=== PATIENT | male | born 1960 | race Caucasian/White ===

== ENCOUNTER 2019-03-22 15:49 | Inpatient (IN) | payer SELFPAY ==
[2019-03-22 16:52] VITALS: BMI 28.7
[2019-03-22] MEDS: niCARdipine 25 MG in Sodium Chloride 0.9% 250 ML 240 ML IVPB SCH (17:24)
[2019-03-22] MEDS ORDERED: Ondansetron ODT 4 MG TAB PO PRN (18:03)
[2019-03-22] MEDS ORDERED: Labetalol HCl 100 MG/20 ML VIAL SLOW IVP PRN (18:03)
[2019-03-22] MEDS: Nicotine 21 MG PATCH TD SCH (18:34)
[2019-03-22] MEDS: Famotidine 20 MG TAB PO SCH (19:45)
[2019-03-22] MEDS: Atorvastatin Calcium 40 MG TAB PO SCH (19:45)
[2019-03-22] MEDS: Acetaminophen 500 MG TAB PO PRN (20:15)
--- NOTE | 2019-03-22 20:45 | HP ---
PRIMARY CARE PROVIDER: Dr. Carrol George. CHIEF COMPLAINT: Left-sided weakness. HISTORY OF PRESENT ILLNESS: This is a 58-year-old male, who presented initially to [facility] complaining of greater than 24-hour history of left-sided weakness involving the left arm and left lower leg. The patient states that he woke up on 03/21/2019, in the transcription hours and felt extremely weak on his left upper and lower extremities. The patient denied any fall or injury and states he was completely normal the night before when he went to bed. The patient states he slept most of the day on 03/21/2019, and awoke on 03/22/2019, with inability to stand or walk. The patient called his mother who recommended he seek medical attention and felt like he had sustained a stroke. The patient admits to history of hypertension, currently treated with oral medication. The patient also admits to hypothyroidism treated medically. The patient admits to greater than 40-50 year history of smokeless tobacco use, occasional alcohol use, and no illicit drug use. The patient denied any travel history, family members with similar symptoms, recent fall or head injury. The patient admits to some difficulty forming words and felt like his arm was heavy and lifeless. In the emergency room, the patient underwent general evaluation including CT imaging of the brain showing no acute process. CT angiogram of the [place] also was performed showing no focal stenosis. The patient was placed on a Cardene infusion due to hypertension at the time of evaluation in the emergency room. The patient was transferred to [facility] Unit and Hospitalist Service for further evaluation. PAST MEDICAL HISTORY: 1. Hypertension, currently medically treated. 2. Hypothyroidism, currently treated. 3. Smokeless tobacco use. PAST SURGICAL HISTORY: Status post hernia repair. CURRENT MEDICATIONS: 1. Amlodipine 5 mg p.o. daily. 2. Levothyroxine 150 mcg p.o. daily. ALLERGIES: NO KNOWN DRUG ALLERGIES. FAMILY HISTORY: Positive for hypertension. SOCIAL HISTORY: Resides in [facility]. Works as a pest control agent. Daily smokeless tobacco use greater than 40 to 50 years. Social alcohol use. No illicit drug use. with 2 children. REVIEW OF SYSTEMS: CONSTITUTIONAL: Negative for weight loss or gain, ability to conduct usual activities. SKIN: Negative for rash, itching. EYES: Negative for double vision, pain. ENT/MOUTH: Negative for nose bleeding, neck stiffness, pain, tenderness. CARDIOVASCULAR: Negative for palpitations, dyspnea on exertion, orthopnea. RESPIRATORY: Negative for shortness of breath, wheezing, cough, hemoptysis, fever or night sweats. GASTROINTESTINAL: Negative for poor appetite, abdominal pain, heartburn, nausea, vomiting, constipation, or diarrhea. GENITOURINARY: Negative for urgency, frequency, dysuria, nocturia. MUSCULOSKELETAL: Negative for pain, swelling. NEUROLOGIC/PSYCHIATRIC: Negative for anxiety, depression. ALLERGY/IMMUNOLOGIC: Negative for skin rash, bleeding tendency. Otherwise, negative except as stated per HPI. PHYSICAL EXAMINATION: VITAL SIGNS: On admission, initially, blood pressure 209/113, currently 156/93 on a Cardene infusion. Pulse 57, respiratory rate 18, temperature 98.7 degrees Fahrenheit, O2 saturation 99% on room air. GENERAL APPEARANCE: This is a 58-year-old male, alert and oriented x3, pleasant, responsive, in no acute distress. HEENT: Pupils are equal, round, reactive to light and accommodation. Extraocular muscles are intact. No scleral icterus. No conjunctival injection. Nares patent. OP is clear. Oral mucosa dry. Left facial asymmetry noted. NECK: Supple. No cervical adenopathy. No thyromegaly. No carotid bruits. No JVD appreciated. Cervical spine with full active and passive range of motion. No meningeal signs noted. CHEST: Lungs are clear to auscultation bilaterally. CARDIOVASCULAR: S1 and S2 without noted murmur, rub, or gallop. ABDOMEN: Rounded, soft, nontender, and nondistended. Bowel sounds are positive in all 4 quadrants. There is no hepatosplenomegaly. No abdominal bruits. No rebound or guarding appreciated. EXTREMITIES: Warm and dry with fair turgor. No clubbing, cyanosis, or asymmetric edema appreciated. Pulses palpable distally at the dorsalis pedis, posterior tibial, and popliteal arteries bilaterally. Capillary refill less than 2 seconds. NEUROLOGICAL: Positive dysarthria. Left facial asymmetry. Left hemiparesis with 2/5 muscle strength in the left upper and left lower extremity. Right-hand dominant. Not observed ambulatory during this exam. Initial NIH score of 11, currently 10. PERTINENT LABORATORY AND X-RAY FINDINGS: Basic metabolic profile within normal limits. LFTs within normal limits. Total CK of 276. Troponin I negative x1. CBC within normal limits. PT 12.0, INR 0.9, PTT 24.7. Urinalysis negative. Urine drug screen dated 03/22/2019, negative. Plasma alcohol level less than 10. EKG dated 03/22/2019, by my interpretation shows sinus bradycardia with heart rates in the 50s. Normal R-wave progression noted in the precordial leads. Left axis deviation noted. T-wave inversion in leads V5 and V6. ASSESSMENT AND PLAN: 1. Acute/subacute ischemic cerebrovascular accident. The patient will be admitted to the Critical Care Unit. We will continue Cardene infusion for blood pressure management. Obtain MRI imaging of the brain to further delineate area of infarct. Continue general stroke protocol including physical, occupational, and speech therapy evaluation. Continue aspirin 81 mg daily. Check fasting lipid profile in the a.m. 2D transthoracic echocardiogram in the a.m. 2. Hypertensive urgency. See #1 above. Continue Cardene infusion to maintain systolic in the 150 to 180 range in conjunction with stroke protocol permissive hypertension. 3. Left hemiparesis secondary to #1. PT and OT evaluation in the a.m. The patient may benefit from inpatient rehabilitation. General fall risk precautions. 4. Hypothyroidism. Continue levothyroxine 150 mcg p.o. daily. Check TSH and free T4 level in the a.m. 5. Smokeless tobacco abuse. Nicotine patch 21 mg daily. Tobacco cessation resources. 6. Prophylaxis. SCDs while in bed. Pepcid 20 mg p.o. b.i.d. 7. Code status is full. Surrogate medical decision maker is the patient's . Job ID: [id number]
[2019-03-22] MEDS: Lorazepam 2 MG/ML VIAL SLOW IVP PRN (21:30)
[2019-03-23 04:24] LABS: Band 2 % (5-11); Hemoglobin 14.7 g/dL (14.0-18.0); Lymphocytes 13 % (21-51); MDiff Complete? YES; Mean Corpuscular HGB CONC 34.6 g/dL (32.0-36.0); Mean Corpuscular Hemoglobin 32.8 pg (27.0-31.0); Mean Corpuscular Volume 94.7 fL (78.0-98.0); Mean Platelet Volume 6.2 fL (7.4-10.4); Monocytes 4 % (0-10); Neutrophil 81 % (42-75); Platelet Count 359 thou/uL (130-400); Red Blood Cell (RBC) Count 4.48 mill/uL (4.70-6.10); White Blood Cell (WBC) Count 7.7 thou/uL (4.8-10.8)
[2019-03-23 04:25] LABS: Anion Gap 10 mmol/L (10-20); BUN (Urea Nitrogen) 18 mg/dL (8.4-25.7); Calc. Creatinine Clearance 107 mL/min (70-130); Calcium 9.6 mg/dL (7.8-10.44); Carbon Dioxide 24 mmol/L (22-29); Cardiac Risk 4.6 (Less than 4.5); Chloride 109 mmol/L (98-107); Cholesterol 213 mg/dl (< 200 Desired); Estimated GFR-MDRD 82; Glucose 133 mg/dL (70-105); HDL Cholesterol 46 mg/dL (>60 Neg Risk); LDL Cholesterol, Calculated 144 mg/dL; Potassium 4.3 mmol/L (3.5-5.1); Sodium 139 mmol/L (136-145); Triglycerides 114 mg/dL (Less than 150)
[2019-03-23 04:42] LABS: Free T4 (Free Thyroxine) 1.17 ng/dL (0.70-1.48); Thyroid Stimulating Hormone 0.3527 uIU/mL (0.35-4.94)
[2019-03-23] MEDS: Aspirin 81 mg Enteric Coated Tablet PO SCH (09:40)
[2019-03-23] MEDS: Famotidine 20 MG TAB PO SCH ×2 (09:41→20:54)
[2019-03-23] MEDS: Enoxaparin Sodium 40 MG/0.4 ML SYRINGE SC SCH (09:41)
--- NOTE | 2019-03-23 09:43 | MRI ---
MRI BRAIN WITHOUT CONTRAST: Date: 03/23/19 INDICATION: Left side weakness. Correlation made to CT head dated 03/22/19. FINDINGS: Ventricles have normal size and position. There are moderately severe chronic ischemic white matter c hanges seen in the periventricular white matter of both cerebral hemispheres. Diffusion images show restricted diffusion in the brainstem on the right at the level of the zohra con sistent with acute brainstem infarct. This extends inferiorly into the region of the right cerebellar peduncle. No other restricted diffusion. No mass or edema. Intracranial internal carotid arteries show flow-voids. Proximal middle cerebral arteries show flow-v oids. Basilar artery demonstrates flow-voids. The posterior cerebrals are not well identified. Abnormal signal in the left maxillary sinus suggests diffuse mucosal disease. IMPRESSION: 1. Acute brainstem infarct at the level of the zohra to the right with involvement into right cerebel lar peduncle. 2. Moderate to severe chronic ischemic white matter change. POS: MARLENE
[2019-03-23] MEDS: niCARdipine 25 MG in Sodium Chloride 0.9% 250 ML 240 ML IVPB SCH (10:26)
[2019-03-23] MEDS ORDERED: Amlodipine 5 MG TAB PO SCH (11:00)
--- NOTE | 2019-03-23 11:35 | CON ---
DATE OF TELEMEDICINE CONSULTATION: 03-25-19 CHIEF COMPLAINT: Acute stroke. HISTORY OF PRESENT ILLNESS: The patient reports that he had sudden onset left- sided weakness when he was asleep. He woke up with this and he felt very weak on the left upper and lower extremities. There was no history of headache or any other symptoms. He also had some numbness on the left side. He was brought to the emergency room and he has never had a stroke before. PREVIOUS MEDICAL HISTORY: Positive for hypertension, hypothyroidism, and smokeless tobacco use. He dips half a can per day. PREVIOUS SURGICAL HISTORY: Status post hernia repair. MEDICATIONS: At home, he is on; 1. Amlodipine. 2. Levothyroxine. ALLERGIES: NO KNOWN DRUG ALLERGIES. SOCIAL HISTORY: He lives with his family. Does not smoke, but dips half a can per day and occasional alcohol. He still works in [employer]. FAMILY HISTORY: Mother has had two CVAs, she is 80 years old. His father at 70, he had cardiac problems, also had a pacemaker. He has 2 brothers and 2 sisters and 4 children, all of them are healthy. REVIEW OF SYSTEMS: PULMONARY: Negative for cough or shortness of breath. GI: Negative for nausea, vomiting, or diarrhea. NEUROLOGIC: Positive for dysarthria plus weakness on the left side along with numbness. DERMATOLOGIC: Negative for any rash. HEMATOLOGIC: Negative for any bleeding, diathesis, or anemia. OPHTHALMOLOGIC: Negative for any eye problems. LABORATORY DATA: His lab workup; white count 7.7, hemoglobin 14.7, hematocrit 94.7, platelet count 359. Sodium 139, potassium 4.3, chloride 109, bicarb 24, BUN 18, creatinine 0.94, glucose 133, calcium 9.6, cholesterol 213, LDL 144, HDL 46, and T4 of 1.1. TSH 0.35. IMAGING STUDIES: CT angio of the head was completed. CTA of the neck was not completed. Therefore, I requested that his brain MRI shows acute brainstem infarct at the level of zohra to the right with involvement into right cerebellar peduncle, [id number] chronic white matter ischemic changes. PHYSICAL EXAMINATION: VITAL SIGNS: Temperature was normal at 97.9, his blood pressure 159/103, heart rate 48, respiratory rate 13, O2 saturations 93%. GENERAL APPEARANCE: Well-built, well-nourished man, who is comfortable in bed. CHEST: Clear vesicular breathing. CARDIOVASCULAR: S1 and S2 heard. No murmurs. ABDOMEN: Soft. NEUROLOGIC: Higher intellectual functions, normal. Orientation to time, place , and person. Cranial nerves 2 through 12. Pupils 2 mm, reactive to light. Decreased sensation of the left face. Normal extraocular movements. Facial asymmetry with weakness of the face on the left side and his tongue is in midline. No atrophy noted. Normal elevation of palate. Normal hearing to finger rub. Motor; bulk normal, tone normal. Strength 5/5 on the right side; 0/5 on the left side in the upper extremity; 2/5 proximally in the left lower extremity, 0/5 distally. His hand retail property manager was intact on the left side, but weak. Muscle groups tested are deltoid, biceps, triceps, wrist extension and flexion, finger extension and flexion, iliopsoas, hamstrings, quadriceps, ankle dorsiflexion, plantar flexion bilaterally. Deep tendon reflexes are 3+ throughout. Sensory examination normal to touch bilaterally, but diminished on the face and arm and leg. Cerebellar; normal on the right side, difficult to test on the left side. Planters, withdrawal response. IMPRESSION: The patient is a 58-year-old man with acute left face, arm, and leg weakness, with which he woke up on the , and he was evaluated in the ER and admitted to the hospital for stroke. His current examination shows diffuse left-sided weakness, but preserved right-sided strength. Diagnosis is most consistent with acute motor plus sensory stroke likely localizing in the brainstem area. At this time, we need to evaluate his vascular status as well. RECOMMENDATIONS: Aspirin for stroke prophylaxis. I requested CT angio of the neck to look for any vascular stenosis in the posterior circulation. The patient will also need to be on statin. I will follow up the patient as stroke workup is completed with echocardiogram as well. Job ID: [id number] [facility]
--- NOTE | 2019-03-23 12:36 | CT ---
CTA NECK WITH AND WITHOUT CONTRAST WITH 3D VOLUME RENDERING: CLINICAL HISTORY: Stroke. FINDINGS: The imaged aortic arch reveals mild calcification. There is a dominant left vertebral artery. There i s no high-grade stenosis or occlusion of the vertebral basilar system. Right subclavian artery is patent, as imaged. Left subclavian artery is not reliably evaluated due to adjacent high density from venous contaminant, limiting visualization of this region of the left base of neck. The bilateral common and internal carotid arteries reveal scattered mild calcification although no high-grade steno sis or occlusion. Portions of the proximal left carotid artery are limited by adjacent venous contaminant, precluding assessment of the proximal aspect of the left common carotid artery. Incident al note of variant circulation of right SHOWCASE MAKER. Incidental note of ground glass and interstitial opacities of the visualized bilateral upper lung zon es, incompletely assessed. Correlate clinically incidental note of diminutive volume of thyroid gland. Scattered nonspecific regional lymph nodes are seen. Multilevel degenerative change of the quinn ged spine, notably involving the cervical segment. IMPRESSION: Scattered atherosclerotic vascular disease, without high-grade stenosis or occlusion of the imaged ma brendan arterial system of the neck. Transcribed Date/Time: 03/23/2019 12:47 PM
[2019-03-23] MEDS: hydrALAZINE 20 MG/ML VIAL SLOW IVP PRN ×2 (14:38→18:11)
--- NOTE | 2019-03-23 16:51 | PDOC.HOSPP ---
- Subjective Encounter Date: 03/23/19 Encounter Time: 16:40 Subjective: f/u for acute R zohra ischemic CVA on current ASA/Lipitor. - Objective Vital Signs & Weight: Vital Signs (12 hours) Temp Pulse Pulse Pulse BP BP BP 03/23/19 14:38 59 L 169/99 H 03/23/19 12:00 98.1 F 03/23/19 11:06 59 L 169/99 H 03/23/19 10:32 60 56 L 168/94 H 158/83 H 03/23/19 09:30 51 L 56 L 162/111 H 163/90 H 03/23/19 08:00 97.9 F 03/23/19 05:00 98.5 F Pulse Ox Pulse Ox Pulse Ox 03/23/19 14:38 03/23/19 12:00 03/23/19 11:06 03/23/19 10:32 95 95 03/23/19 09:30 99 96 03/23/19 08:00 98 03/23/19 05:00 Weight Weight 200 lb 6.403 oz Most Recent Monitor Data Heart Rate from ECG 65 NIBP 153/90 NIBP BP-Mean 111 Respiration from ECG 28 SpO2 95 I&O: 03/22/19 03/23/19 03/24/19 06:59 06:59 06:59 Intake Total 855 450 Output Total 820 350 Balance 35 100 Result Diagrams: 03/23/19 03:40 03/23/19 03:40 Additional Labs: Laboratory Tests 03/23/19 03:41 Free T4 1.17 TSH 3rd Generation 0.3527 Radiology Reviewed by me: Yes (MRI brain = R zohra isch infarct) EKG Reviewed by me: Yes (Tele - SR) Hospitalist ROS - Medication Medications: Active Medications Generic Name Dose Route Start Last Admin Trade Name Freq PRN Reason Stop Dose Admin Acetaminophen 1,000 mg 03/22/19 18:03 03/22/19 20:15 Tylenol PO 1,000 mg Q6H PRN Administration Mild Pain (1-3) Amlodipine Besylate 5 mg 03/24/19 09:00 03/23/19 11:06 Norvasc PO 5 mg DAILY WILL Administration Aspirin 81 mg 03/23/19 09:00 03/23/19 09:40 Ecotrin PO 81 mg DAILY WILL Administration Atorvastatin Calcium 40 mg 03/22/19 21:00 12/22/19 19:45 Lipitor PO 40 mg HS WILL Administration Enoxaparin Sodium 40 mg 03/23/19 09:00 03/23/19 09:41 Lovenox SC 40 mg 0900 WILL Administration Famotidine 20 mg 03/22/19 21:00 03/23/19 09:41 Pepcid PO 20 mg BID WILL Administration Hydralazine HCl 10 mg 03/22/19 18:03 03/23/19 14:38 Apresoline SLOW IVP 10 mg Q4H PRN Administration BP > 220/110 Nicardipine HCl 25 mg/ Sodium 250 mls @ 0 mls/hr 03/22/19 16:30 03/23/19 10: 26 Chloride IVPB 250 mls INF WILL Administration Protocol Titrate Lorazepam 1 mg 03/22/19 18:03 03/22/19 21:30 Ativan SLOW IVP 1 mg Q6H PRN Administration Anxiety/Agitation Nicotine 21 mg 03/22/19 18:00 03/22/19 18:34 Nicoderm Patch TD 21 mg Q24HR WILL Administration - Exam General Appearance: NAD, awake alert Eye: PERRL, anicteric sclera ENT: normocephalic atraumatic, no oropharyngeal lesions Neck: supple, symmetric, no JVD, no thyromegaly Heart: RRR, no murmur, no gallops, no rubs, normal peripheral pulses Respiratory: CTAB, no wheezes, no rales, no ronchi, normal chest expansion Gastrointestinal: soft, non-tender, non-distended, normal bowel sounds Extremities: no cyanosis, no clubbing, no edema Skin: normal turgor, no lesions Neurological: facial droop Neurological - other findings: L hemiparesis, dysarthria Musculoskeletal: normal tone Psychiatric: normal affect, A&O x 3 Hosp A/P (1) Acute CVA (cerebrovascular accident) Code(s): I63.9 - CEREBRAL INFARCTION, UNSPECIFIED Status: Acute Plan: R zohra ischemic CVA, continue ASA/Lipitor (2) Hypertensive urgency Code(s): I16.0 - HYPERTENSIVE URGENCY Status: Acute Plan: Improved, Cardene gtt off, increase Amlodipine 10mg daily, PRN Hydralazine/ Labetalol (3) Hyperlipidemia Code(s): E78.5 - HYPERLIPIDEMIA, UNSPECIFIED Status: Chronic Plan: Continue Lipitor 40mg HS (4) Acute left hemiparesis Code(s): G81.94 - HEMIPLEGIA, UNSPECIFIED AFFECTING LEFT NONDOMINANT SIDE Status: Acute Plan: PT/OT for mobilization, rehab options - Plan plan discussed w/ family, PT/OT, social secretary, out of bed/ambulate, DVT proph w/SCDs Stable currently Continue ASA 81mg daily Continue Lipitor PT/OT/ST D/C Cardene gtt Increase Amlodipine 10mg daily Transfer to stroke unit
[2019-03-23] MEDS: Nicotine 21 MG PATCH TD SCH (17:35)
[2019-03-23] MEDS: Lorazepam 2 MG/ML VIAL SLOW IVP PRN (20:54)
[2019-03-23] MEDS: Atorvastatin Calcium 40 MG TAB PO SCH (20:54)
[2019-03-24] MEDS ORDERED: Amlodipine 5 MG TAB PO SCH (09:00)
[2019-03-24] MEDS: Aspirin 81 mg Enteric Coated Tablet PO SCH (10:04)
[2019-03-24] MEDS: Famotidine 20 MG TAB PO SCH ×2 (10:04→20:40)
[2019-03-24] MEDS: Enoxaparin Sodium 40 MG/0.4 ML SYRINGE SC SCH (10:04)
[2019-03-24] MEDS: Amlodipine 10 MG TAB PO SCH (10:05)
--- NOTE | 2019-03-24 12:03 | PRG ---
DATE OF TELEMEDICINE SERVICE: 03/24/2019 CHIEF COMPLAINT: Left-sided weakness. INTERVAL HISTORY: The patient continues to have left-sided weakness. Further workup, his brain MRI was completed. He has acute brainstem infarct to the right zohra with involvement into right cerebral nerve peduncle. Echocardiogram was also completed and showed no thrombus, but he has mild mitral and tricuspid regurgitation. He has completed his CT angiography, which did not show any kind of stenosis in the neck area. PHYSICAL EXAMINATION: VITAL SIGNS: Today, temperature 97.5, pulse 54, O2 saturations 94%, blood pressure 178/89. GENERAL APPEARANCE: Well-built, well-nourished man. NEUROLOGICAL: Higher intellectual functions; normal orientation to time, place , and person. Dysarthria is better today. Cranial nerves, left facial weakness. Motor examination, he has 0/5 strength left upper extremity, except for flexors in the hand, which were 2+. Left lower extremity strength was 3/5. IMPRESSION AND PLAN: The patient with acute stroke in the right brainstem area and pontine area. He has left-sided weakness. At this time, he will need further rehab placement to improve his strength in the left arm and leg. He can follow up with Neurology as outpatient after his discharge from rehab. For now, please work on PM and R consult and rehab placement. Agree with aspirin plus statin for stroke prophylaxis. Job ID: [id number] [facility]
--- NOTE | 2019-03-24 16:26 | PDOC.HOSPP ---
- Subjective Encounter Date: 03/24/19 Encounter Time: 16:25 Subjective: f/u for acute CVA R zohra region with L hemiparesis, dysarthria on current ASA/ Lipitor. Persistent weakness in LUE>LLE. Nursing reports pt fell while transferring to wheelchair. No LOC/head injury and family were present. Pt states he feels ok and just slid down. - Objective Vital Signs & Weight: Vital Signs (12 hours) Temp Pulse Resp BP Pulse Ox 03/24/19 16:19 172/102 H 03/24/19 15:34 97.7 F 56 L 20 190/97 H 97 03/24/19 11:22 97.6 F 52 L 16 151/94 H 95 03/24/19 10:05 54 L 03/24/19 08:00 97.5 F L 65 12 178/89 H 94 L Weight Weight 200 lb 6.403 oz Most Recent Monitor Data Heart Rate from ECG 78 NIBP 158/95 NIBP BP-Mean 116 Respiration from ECG 28 SpO2 86 I&O: 03/23/19 03/24/19 03/25/19 06:59 06:59 06:59 Intake Total 855 790 360 Output Total 820 550 Balance 35 240 360 Result Diagrams: 03/23/19 03:40 03/23/19 03:40 Additional Labs: Laboratory Tests 03/23/19 03:41 Free T4 1.17 TSH 3rd Generation 0.3527 Radiology Reviewed by me: Yes (Echo - EF 55-60%, diast dysfxn, no thrombus) EKG Reviewed by me: Yes (Tele - SR) Hospitalist ROS - Medication Medications: Active Medications Generic Name Dose Route Start Last Admin Trade Name Freq PRN Reason Stop Dose Admin Acetaminophen 1,000 mg 03/22/19 18:03 03/22/19 20:15 Tylenol PO 1,000 mg Q6H PRN Administration Mild Pain (1-3) Amlodipine Besylate 10 mg 03/24/19 09:00 03/24/19 10:05 Norvasc PO 10 mg DAILY WILL Administration Aspirin 81 mg 03/23/19 09:00 03/24/19 10:04 Ecotrin PO 81 mg DAILY WILL Administration Atorvastatin Calcium 40 mg 03/22/19 21:00 03/23/19 20:54 Lipitor PO 40 mg HS WILL Administration Enoxaparin Sodium 40 mg 03/23/19 09:00 03/24/19 10:04 Lovenox SC 40 mg 0900 WILL Administration Famotidine 20 mg 03/22/19 21:00 03/24/19 10:04 Pepcid PO 20 mg BID WILL Administration Hydralazine HCl 10 mg 03/22/19 18:03 03/23/19 18:11 Apresoline SLOW IVP 10 mg Q4H PRN Administration BP > 220/110 Nicardipine HCl 25 mg/ Sodium 250 mls @ 0 mls/hr 03/22/19 16:30 03/23/19 10: 26 Chloride IVPB 250 mls INF WILL Administration Protocol Titrate Lorazepam 1 mg 03/22/19 18:03 03/23/19 20:54 Ativan SLOW IVP 1 mg Q6H PRN Administration Anxiety/Agitation Nicotine 21 mg 03/22/19 18:00 03/23/19 17:35 Nicoderm Patch TD 21 mg Q24HR WILL Administration Sodium Chloride 10 ml 03/22/19 18:03 03/24/19 10:04 Flush - Normal Saline IVF 10 ml PRN PRN Administration Saline Flush - Exam General Appearance: NAD, awake alert Eye: PERRL, anicteric sclera ENT: normocephalic atraumatic, no oropharyngeal lesions Neck: supple, symmetric, no JVD, no thyromegaly Heart: RRR, no murmur, no gallops, no rubs, normal peripheral pulses Respiratory: CTAB, no wheezes, no rales, no ronchi, normal chest expansion Gastrointestinal: soft, non-tender, non-distended, normal bowel sounds, no palpable masses Extremities: no cyanosis, no clubbing, no edema Skin: normal turgor, no lesions Neurological: cranial nerve grossly intact, no new deficit Neurological - other findings: L facial droop, L hemiparesis, dysarthria Psychiatric: normal affect, A&O x 3 Hosp A/P (1) Acute CVA (cerebrovascular accident) Code(s): I63.9 - CEREBRAL INFARCTION, UNSPECIFIED Status: Acute Plan: Continue ASA/Lipitor, stroke protocol (2) Hypertensive urgency Code(s): I16.0 - HYPERTENSIVE URGENCY Status: Acute Plan: Resolved but BP labile, continue Norvasc 10mg daily, add Lisinopril 10mg BID, serial BP monitoring (3) Hyperlipidemia Code(s): E78.5 - HYPERLIPIDEMIA, UNSPECIFIED Status: Chronic Plan: Continue Lipitor (4) Acute left hemiparesis Code(s): G81.94 - HEMIPLEGIA, UNSPECIFIED AFFECTING LEFT NONDOMINANT SIDE Status: Acute Plan: PT/OT for mobilization, Rehab options (5) Tobacco abuse Code(s): Z72.0 - TOBACCO USE Status: Chronic Plan: Nicotine patch daily, cessation resources - Plan PT/OT, social sciences research scientist, speech therapy, out of bed/ambulate, DVT proph w/SCDs Stable currently Continue ASA 81mg daily Continue Lipitor PT/OT/ST Add Lisinopril 10mg BID Increase Amlodipine 10mg daily Senokot S BID PRN Restoril 15mg HS PRN Transfer to stroke unit Rehab options pending
[2019-03-24] MEDS: Nicotine 21 MG PATCH TD SCH (18:01)
[2019-03-24] MEDS: Senokot S 8.6-50 MG TAB PO SCH (20:39)
[2019-03-24] MEDS: Lisinopril 10 MG TAB PO SCH (20:40)
[2019-03-24] MEDS: Atorvastatin Calcium 40 MG TAB PO SCH (20:40)
[2019-03-24] MEDS: Temazepam 15 MG CAP PO PRN (20:40)
[2019-03-24] MEDS: Ondansetron PF 4 MG/2 ML Vial IVP PRN (23:41)
[2019-03-25] MEDS: Acetaminophen 500 MG TAB PO PRN (02:59)
[2019-03-25] MEDS: Aspirin 81 mg Enteric Coated Tablet PO SCH (09:25)
[2019-03-25] MEDS: Amlodipine 10 MG TAB PO SCH (09:25)
[2019-03-25] MEDS: Famotidine 20 MG TAB PO SCH ×2 (09:25→21:00)
[2019-03-25] MEDS: Senokot S 8.6-50 MG TAB PO SCH ×2 (09:25→20:59)
[2019-03-25] MEDS: Lisinopril 10 MG TAB PO SCH ×2 (09:26→20:59)
[2019-03-25] MEDS: Enoxaparin Sodium 40 MG/0.4 ML SYRINGE SC SCH (09:26)
--- NOTE | 2019-03-25 14:50 | PDOC.HOSPP ---
- Subjective Encounter Date: 03/25/19 Encounter Time: 14:40 Subjective: f/u for acute CVA in [facility] with L hemiparesis and dysarthria. Feels ok overall but LUE remains weak without significant improvement. - Objective Vital Signs & Weight: Vital Signs (12 hours) Temp Pulse Pulse Resp BP BP BP 03/25/19 11:47 97.9 F 45 L 16 127/68 03/25/19 10:35 67 147/87 H 03/25/19 09:26 138/91 H 03/25/19 09:25 44 L 138/91 H 03/25/19 08:00 98.2 F 45 L 18 138/91 H 03/25/19 03:15 45 L 172/84 H Pulse Ox 03/25/19 11:47 94 L 03/25/19 10:35 03/25/19 09:26 03/25/19 09:25 03/25/19 08:00 94 L 03/25/19 03:15 Weight Weight 200 lb 6.403 oz Most Recent Monitor Data Heart Rate from ECG 78 NIBP 158/95 NIBP BP-Mean 116 Respiration from ECG 28 SpO2 86 I&O: 03/24/19 03/25/19 03/26/19 06:59 06:59 06:59 Intake Total 790 600 120 Output Total 550 Balance 240 600 120 Result Diagrams: 03/23/19 03:40 03/23/19 03:40 Additional Labs: Laboratory Tests 03/23/19 03:41 Free T4 1.17 TSH 3rd Generation 0.3527 EKG Reviewed by me: Yes (Tele - SR) Hospitalist ROS - Medication Medications: Active Medications Generic Name Dose Route Start Last Admin Trade Name Freq PRN Reason Stop Dose Admin Acetaminophen 1,000 mg 03/22/19 18:03 03/25/19 02:59 Tylenol PO 1,000 mg Q6H PRN Administration Mild Pain (1-3) Amlodipine Besylate 10 mg 03/24/19 09:00 03/25/19 09:25 Norvasc PO 10 mg DAILY WILL Administration Aspirin 81 mg 03/23/19 09:00 03/25/19 09:25 Ecotrin PO 81 mg DAILY WILL Administration Atorvastatin Calcium 40 mg 03/22/19 21:00 03/24/19 20:40 Lipitor PO 40 mg HS WILL Administration Enoxaparin Sodium 40 mg 03/23/19 09:00 03/25/19 09:26 Lovenox SC 40 mg 0900 WILL Administration Famotidine 20 mg 03/22/19 21:00 03/25/19 09:25 Pepcid PO 20 mg BID WILL Administration Hydralazine HCl 10 mg 03/22/19 18:03 03/23/19 18:11 Apresoline SLOW IVP 10 mg Q4H PRN Administration BP > 220/110 Lisinopril 10 mg 03/24/19 21:00 03/25/19 09:26 Zestril PO 10 mg BID WILL Administration Lorazepam 1 mg 03/22/19 18:03 03/23/19 20:54 Ativan SLOW IVP 1 mg Q6H PRN Administration Anxiety/Agitation Nicotine 21 mg 03/22/19 18:00 03/24/19 18:01 Nicoderm Patch TD 21 mg Q24HR WILL Administration Ondansetron HCl 4 mg 03/22/19 18:03 03/24/19 23:41 Zofran IVP 4 mg Q6H PRN Administration Nausea/Vomiting Senna/Docusate Sodium 1 tab 03/24/19 21:00 03/25/19 09:25 Senokot S PO 1 tab BID WILL Administration Sodium Chloride 10 ml 03/22/19 18:03 03/24/19 20:41 Flush - Normal Saline IVF 10 ml PRN PRN Administration Saline Flush Temazepam 15 mg 03/24/19 16:47 03/24/19 20:40 Restoril PO 15 mg HSPRN PRN Administration Insomnia - Exam General Appearance: NAD, awake alert Eye: PERRL, anicteric sclera ENT: normocephalic atraumatic, no oropharyngeal lesions Neck: supple, symmetric, no JVD, no thyromegaly Heart: RRR, no murmur, no gallops, no rubs, normal peripheral pulses Respiratory: CTAB, no wheezes, no rales, no ronchi, normal chest expansion Gastrointestinal: soft, non-tender, non-distended, normal bowel sounds Extremities: no cyanosis, no clubbing, no edema Skin: normal turgor, no lesions Neurological - other findings: dysarthria, L hemiparesis Psychiatric: normal affect, A&O x 3 Hosp A/P (1) Acute CVA (cerebrovascular accident) Code(s): I63.9 - CEREBRAL INFARCTION, UNSPECIFIED Status: Acute Plan: Continue ASA/Lipitor, stroke protocol, Rehab options pending (2) Hypertensive urgency Code(s): I16.0 - HYPERTENSIVE URGENCY Status: Acute Plan: Resolved, HTN mildly labile, titrate to optimize control (3) Hyperlipidemia Code(s): E78.5 - HYPERLIPIDEMIA, UNSPECIFIED Status: Chronic Plan: Continue Lipitor (4) Acute left hemiparesis Code(s): G81.94 - HEMIPLEGIA, UNSPECIFIED AFFECTING LEFT NONDOMINANT SIDE Status: Acute Plan: Persistent, PT/OT, Rehab options pending (5) Tobacco abuse Code(s): Z72.0 - TOBACCO USE Status: Chronic Plan: Nicotine patch daily - Plan PT/OT, manager social responsibility, out of bed/ambulate, DVT proph w/SCDs Stable currently Continue ASA 81mg daily Continue Lipitor PT/OT/ST Add Lisinopril 10mg BID Increase Amlodipine 10mg daily Senokot S BID PRN Restoril 15mg HS PRN Transfer to stroke unit Rehab options pending
[2019-03-25] MEDS: Nicotine 21 MG PATCH TD SCH (18:29)
[2019-03-25] MEDS: Atorvastatin Calcium 40 MG TAB PO SCH (20:59)
[2019-03-25] MEDS: Temazepam 15 MG CAP PO PRN (21:00)
[2019-03-25] MEDS: Ondansetron PF 4 MG/2 ML Vial IVP PRN (21:00)
[2019-03-26] MEDS: Acetaminophen 500 MG TAB PO PRN (02:08)
[2019-03-26] MEDS: Lorazepam 2 MG/ML VIAL SLOW IVP PRN (02:09)
[2019-03-26] MEDS: Amlodipine 10 MG TAB PO SCH (09:52)
[2019-03-26] MEDS: Enoxaparin Sodium 40 MG/0.4 ML SYRINGE SC SCH (09:52)
[2019-03-26] MEDS: Famotidine 20 MG TAB PO SCH ×2 (09:54→21:39)
[2019-03-26] MEDS: Aspirin 81 mg Enteric Coated Tablet PO SCH (09:54)
[2019-03-26] MEDS: Senokot S 8.6-50 MG TAB PO SCH ×2 (09:54→21:39)
[2019-03-26] MEDS: Lisinopril 10 MG TAB PO SCH ×2 (09:54→21:39)
--- NOTE | 2019-03-26 15:11 | PDOC.HOSPP ---
- Subjective Encounter Date: 03/26/19 Encounter Time: 15:10 Subjective: f/u for [facility] CVA with L hemiparesis, dysarthria on current ASA/Lipitor. No new complaints. Working with PT/OT. - Objective Vital Signs & Weight: Vital Signs (12 hours) Temp Pulse Resp BP BP Pulse Ox 03/26/19 11:46 98.4 F 56 L 16 171/81 H 95 03/26/19 09:54 141/73 H 03/26/19 09:52 53 L 141/73 H 03/26/19 07:57 97.6 F 53 L 16 141/73 H 98 03/26/19 03:59 97.8 F 48 L 16 193/102 H 98 Weight Weight 200 lb 6.403 oz Most Recent Monitor Data Heart Rate from ECG 78 NIBP 158/95 NIBP BP-Mean 116 Respiration from ECG 28 SpO2 86 I&O: 03/25/19 03/26/19 03/27/19 06:59 06:59 06:59 Intake Total 600 480 480 Balance 600 480 480 Result Diagrams: 03/23/19 03:40 03/23/19 03:40 Additional Labs: Laboratory Tests 03/23/19 03:41 Free T4 1.17 TSH 3rd Generation 0.3527 EKG Reviewed by me: Yes (Tele -SR) Hospitalist ROS - Medication Medications: Active Medications Generic Name Dose Route Start Last Admin Trade Name Freq PRN Reason Stop Dose Admin Acetaminophen 1,000 mg 03/22/19 18:03 03/26/19 02:08 Tylenol PO 1,000 mg Q6H PRN Administration Mild Pain (1-3) Amlodipine Besylate 10 mg 03/24/19 09:00 03/26/19 09:52 Norvasc PO 10 mg DAILY WILL Administration Aspirin 81 mg 03/23/19 09:00 03/26/19 09:54 Ecotrin PO 81 mg DAILY WILL Administration Atorvastatin Calcium 40 mg 03/22/19 21:00 03/25/19 20:59 Lipitor PO 40 mg HS WILL Administration Enoxaparin Sodium 40 mg 03/23/19 09:00 03/26/19 09:52 Lovenox SC 40 mg 0900 WILL Administration Famotidine 20 mg 03/22/19 21:00 03/26/19 09:54 Pepcid PO 20 mg BID WILL Administration Hydralazine HCl 10 mg 03/22/19 18:03 03/23/19 18:11 Apresoline SLOW IVP 10 mg Q4H PRN Administration BP > 220/110 Lisinopril 10 mg 03/24/19 21:00 03/26/19 09:54 Zestril PO 10 mg BID WILL Administration Lorazepam 1 mg 03/22/19 18:03 03/26/19 02:09 Ativan SLOW IVP 1 mg Q6H PRN Administration Anxiety/Agitation Nicotine 21 mg 03/22/19 18:00 03/25/19 18:29 Nicoderm Patch TD 21 mg Q24HR WILL Administration Ondansetron HCl 4 mg 03/22/19 18:03 03/25/19 21:00 Zofran IVP 4 mg Q6H PRN Administration Nausea/Vomiting Senna/Docusate Sodium 1 tab 03/24/19 21:00 03/26/19 09:54 Senokot S PO 1 tab BID WILL Administration Sodium Chloride 10 ml 03/22/19 18:03 03/25/19 21:01 Flush - Normal Saline IVF 10 ml PRN PRN Administration Saline Flush Temazepam 15 mg 03/24/19 16:47 03/25/19 21:00 Restoril PO 15 mg HSPRN PRN Administration Insomnia - Exam General Appearance: NAD, awake alert Eye: PERRL, anicteric sclera ENT: normocephalic atraumatic, no oropharyngeal lesions Neck: supple, symmetric, no JVD, no thyromegaly Heart: RRR, no murmur, no gallops, no rubs, normal peripheral pulses Respiratory: CTAB, no wheezes, no rales, no ronchi Gastrointestinal: soft, non-tender, non-distended, normal bowel sounds Extremities: no cyanosis, no clubbing, no edema Skin: normal turgor, no lesions Neurological - other findings: dysarthria, L UE flaccid, LLE with weakness Psychiatric: normal affect, A&O x 3 Hosp A/P (1) Acute CVA (cerebrovascular accident) Code(s): I63.9 - CEREBRAL INFARCTION, UNSPECIFIED Status: Acute Plan: Continue ASA/Lipitor, secondary prevention, plan for rehab but complicated with lack of funding, looking for charitable options (2) Hypertensive urgency Code(s): I16.0 - HYPERTENSIVE URGENCY Status: Acute (3) Hyperlipidemia Code(s): E78.5 - HYPERLIPIDEMIA, UNSPECIFIED Status: Chronic Plan: Continue Lipitor (4) Acute left hemiparesis Code(s): G81.94 - HEMIPLEGIA, UNSPECIFIED AFFECTING LEFT NONDOMINANT SIDE Status: Acute Plan: PT/OT for mobilization (5) Tobacco abuse Code(s): Z72.0 - TOBACCO USE Status: Chronic Plan: Nicotine patch - Plan plan discussed w/ family, PT/OT, social director, out of bed/ambulate, DVT proph w/SCDs Stable currently Continue ASA 81mg daily Continue Lipitor PT/OT/ST Add Lisinopril 10mg BID Increase Amlodipine 10mg daily Senokot S BID PRN Restoril 15mg HS PRN [facility] rehab options pending
[2019-03-26] MEDS: Nicotine 21 MG PATCH TD SCH (17:56)
[2019-03-26] MEDS: Atorvastatin Calcium 40 MG TAB PO SCH (21:40)
[2019-03-26] MEDS: Temazepam 15 MG CAP PO PRN (21:40)
[2019-03-27] MEDS: Lorazepam 2 MG/ML VIAL SLOW IVP PRN (02:21)
[2019-03-27] MEDS: Amlodipine 10 MG TAB PO SCH (08:45)
[2019-03-27] MEDS: Aspirin 81 mg Enteric Coated Tablet PO SCH (08:45)
[2019-03-27] MEDS: Lisinopril 10 MG TAB PO SCH ×2 (08:45→21:02)
[2019-03-27] MEDS: Famotidine 20 MG TAB PO SCH ×2 (08:45→21:02)
[2019-03-27] MEDS: Enoxaparin Sodium 40 MG/0.4 ML SYRINGE SC SCH (08:46)
[2019-03-27] MEDS: Senokot S 8.6-50 MG TAB PO SCH ×2 (08:46→21:02)
--- NOTE | 2019-03-27 11:06 | PDOC.HOSPP ---
- Subjective Encounter Date: 03/27/19 Encounter Time: 07:40 Subjective: No specific complaint... - Objective Vital Signs & Weight: Vital Signs (12 hours) Temp Pulse Resp BP BP Pulse Ox 03/27/19 08:45 49 L 137/86 03/27/19 07:34 97.5 F L 49 L 20 137/86 98 03/27/19 04:00 97.6 F 49 L 16 136/67 97 03/27/19 00:00 97.7 F 48 L 16 164/86 H 94 L Weight Weight 200 lb 6.403 oz Most Recent Monitor Data Heart Rate from ECG 78 NIBP 158/95 NIBP BP-Mean 116 Respiration from ECG 28 SpO2 86 I&O: 03/26/19 03/27/19 03/28/19 06:59 06:59 06:59 Intake Total 480 960 Output Total 200 Balance 480 960 -200 Result Diagrams: 03/23/19 03:40 03/23/19 03:40 Hospitalist ROS - Medication Medications: Active Medications Generic Name Dose Route Start Last Admin Trade Name Freq PRN Reason Stop Dose Admin Acetaminophen 1,000 mg 03/22/19 18:03 03/26/19 02:08 Tylenol PO 1,000 mg Q6H PRN Administration Mild Pain (1-3) Amlodipine Besylate 10 mg 03/24/19 09:00 03/27/19 08:45 Norvasc PO 10 mg DAILY WILL Administration Aspirin 81 mg 03/23/19 09:00 03/27/19 08:45 Ecotrin PO 81 mg DAILY WILL Administration Atorvastatin Calcium 40 mg 03/22/19 21:00 03/26/19 21:40 Lipitor PO 40 mg HS WILL Administration Enoxaparin Sodium 40 mg 03/23/19 09:00 03/27/19 08:46 Lovenox SC 40 mg 0900 WILL Administration Famotidine 20 mg 03/22/19 21:00 03/27/19 08:45 Pepcid PO 20 mg BID WILL Administration Hydralazine HCl 10 mg 03/22/19 18:03 03/23/19 18:11 Apresoline SLOW IVP 10 mg Q4H PRN Administration BP > 220/110 Lisinopril 10 mg 03/24/19 21:00 03/27/19 08:45 Zestril PO 10 mg BID WILL Administration Lorazepam 1 mg 03/22/19 18:03 03/27/19 02:21 Ativan SLOW IVP 1 mg Q6H PRN Administration Anxiety/Agitation Nicotine 21 mg 03/22/19 18:00 03/26/19 17:56 Nicoderm Patch TD 21 mg Q24HR WILL Administration Ondansetron HCl 4 mg 03/22/19 18:03 03/25/19 21:00 Zofran IVP 4 mg Q6H PRN Administration Nausea/Vomiting Senna/Docusate Sodium 1 tab 03/24/19 21:00 03/27/19 08:46 Senokot S PO 1 tab BID WILL Administration Sodium Chloride 10 ml 03/22/19 18:03 03/25/19 21:01 Flush - Normal Saline IVF 10 ml PRN PRN Administration Saline Flush Temazepam 15 mg 03/24/19 16:47 03/26/19 21:40 Restoril PO 15 mg HSPRN PRN Administration Insomnia - Exam General Appearance: NAD Eye: anicteric sclera Neck: no JVD Heart: RRR Respiratory: CTAB Gastrointestinal: soft Extremities: no edema Neurological: hemiplegia Neurological - other findings: left.. Hosp A/P (1) Acute CVA (cerebrovascular accident) Code(s): I63.9 - CEREBRAL INFARCTION, UNSPECIFIED Status: Acute (2) Acute left hemiparesis Code(s): G81.94 - HEMIPLEGIA, UNSPECIFIED AFFECTING LEFT NONDOMINANT SIDE Status: Acute (3) Hypertensive urgency Code(s): I16.0 - HYPERTENSIVE URGENCY Status: Acute Plan: BP controlled.. (4) Hyperlipidemia Code(s): E78.5 - HYPERLIPIDEMIA, UNSPECIFIED Status: Chronic (5) Tobacco abuse Code(s): Z72.0 - TOBACCO USE Status: Chronic - Plan On ASA, Statin... ?[facility]
[2019-03-27] MEDS: Nicotine 21 MG PATCH TD SCH (17:40)
[2019-03-27] MEDS: Atorvastatin Calcium 40 MG TAB PO SCH (21:02)
[2019-03-27] MEDS: Temazepam 15 MG CAP PO PRN (21:03)
[2019-03-28] MEDS: Lorazepam 1 MG TAB PO PRN (01:49)
[2019-03-28] MEDS: Enoxaparin Sodium 40 MG/0.4 ML SYRINGE SC SCH (09:13)
[2019-03-28] MEDS: Amlodipine 10 MG TAB PO SCH (09:13)
[2019-03-28] MEDS: Famotidine 20 MG TAB PO SCH ×2 (09:13→21:57)
[2019-03-28] MEDS: Lisinopril 10 MG TAB PO SCH ×2 (09:13→21:57)
[2019-03-28] MEDS: Aspirin 81 mg Enteric Coated Tablet PO SCH (09:13)
[2019-03-28] MEDS: Senokot S 8.6-50 MG TAB PO SCH ×2 (09:14→21:57)
--- NOTE | 2019-03-28 11:34 | PDOC.HOSPP ---
- Subjective Encounter Date: 03/28/19 Encounter Time: 09:00 Subjective: Expresses no complaint.. - Objective Vital Signs & Weight: Vital Signs (12 hours) Temp Pulse Resp BP BP Pulse Ox 03/28/19 11:12 97.4 F L 54 L 20 164/89 H 98 03/28/19 09:13 50 L 149/76 H 03/28/19 07:50 97.5 F L 50 L 16 149/76 H 95 03/28/19 03:54 97.6 F 43 L 16 132/70 99 03/28/19 00:00 97.5 F L 96 16 143/87 H 48 L Weight Weight 200 lb 6.403 oz Most Recent Monitor Data Heart Rate from ECG 78 NIBP 158/95 NIBP BP-Mean 116 Respiration from ECG 28 SpO2 86 I&O: 03/27/19 03/28/19 03/29/19 06:59 06:59 06:59 Intake Total 960 600 Output Total 425 Balance 960 175 Result Diagrams: 03/23/19 03:40 03/23/19 03:40 Hospitalist ROS - Medication Medications: Active Medications Generic Name Dose Route Start Last Admin Trade Name Freq PRN Reason Stop Dose Admin Acetaminophen 1,000 mg 03/22/19 18:03 03/26/19 02:08 Tylenol PO 1,000 mg Q6H PRN Administration Mild Pain (1-3) Amlodipine Besylate 10 mg 03/24/19 09:00 03/28/19 09:13 Norvasc PO 10 mg DAILY WILL Administration Aspirin 81 mg 03/23/19 09:00 03/28/19 09:13 Ecotrin PO 81 mg DAILY WILL Administration Atorvastatin Calcium 40 mg 03/22/19 21:00 03/27/19 21:02 Lipitor PO 40 mg HS WILL Administration Enoxaparin Sodium 40 mg 03/23/19 09:00 03/28/19 09:13 Lovenox SC 40 mg 0900 WILL Administration Famotidine 20 mg 03/22/19 21:00 03/28/19 09:13 Pepcid PO 20 mg BID WILL Administration Hydralazine HCl 10 mg 03/22/19 18:03 03/23/19 18:11 Apresoline SLOW IVP 10 mg Q4H PRN Administration BP > 220/110 Lisinopril 10 mg 03/24/19 21:00 03/28/19 09:13 Zestril PO 10 mg BID WILL Administration Lorazepam 1 mg 03/27/19 15:01 03/28/19 01:49 Ativan PO 1 mg Q6H PRN Administration Anxiety/Agitation Nicotine 21 mg 03/22/19 18:00 03/27/19 17:40 Nicoderm Patch TD 21 mg Q24HR WILL Administration Ondansetron HCl 4 mg 03/22/19 18:03 03/25/19 21:00 Zofran IVP 4 mg Q6H PRN Administration Nausea/Vomiting Senna/Docusate Sodium 1 tab 03/24/19 21:00 03/28/19 09:14 Senokot S PO Not Given BID WILL Sodium Chloride 10 ml 03/22/19 18:03 03/25/19 21:01 Flush - Normal Saline IVF 10 ml PRN PRN Administration Saline Flush Temazepam 15 mg 03/24/19 16:47 03/27/19 21:03 Restoril PO 15 mg HSPRN PRN Administration Insomnia - Exam General Appearance: NAD Neck: no JVD Heart: RRR Respiratory: CTAB Gastrointestinal: soft Extremities: no edema Neurological: hemiplegia (, left..) Hosp A/P (1) Acute CVA (cerebrovascular accident) Code(s): I63.9 - CEREBRAL INFARCTION, UNSPECIFIED Status: Acute (2) Acute left hemiparesis Code(s): G81.94 - HEMIPLEGIA, UNSPECIFIED AFFECTING LEFT NONDOMINANT SIDE Status: Acute (3) Hypertensive urgency Code(s): I16.0 - HYPERTENSIVE URGENCY Status: Acute (4) Hyperlipidemia Code(s): E78.5 - HYPERLIPIDEMIA, UNSPECIFIED Status: Chronic (5) Tobacco abuse Code(s): Z72.0 - TOBACCO USE Status: Chronic - Plan On ASA, Statin... For Possible Charitable rehab
[2019-03-28] MEDS: Nicotine 21 MG PATCH TD SCH (17:51)
[2019-03-28] MEDS: Atorvastatin Calcium 40 MG TAB PO SCH (21:57)
[2019-03-28] MEDS: Temazepam 15 MG CAP PO PRN (21:58)
[2019-03-29] MEDS: Lorazepam 1 MG TAB PO PRN ×2 (01:31→23:11)
[2019-03-29] MEDS: Levothyroxine 150 MCG TAB PO SCH (05:21)
[2019-03-29] MEDS: Famotidine 20 MG TAB PO SCH ×2 (09:46→21:21)
[2019-03-29] MEDS: Enoxaparin Sodium 40 MG/0.4 ML SYRINGE SC SCH (09:47)
[2019-03-29] MEDS: Lisinopril 10 MG TAB PO SCH ×2 (09:47→21:21)
[2019-03-29] MEDS: Senokot S 8.6-50 MG TAB PO SCH ×2 (09:48→21:21)
[2019-03-29] MEDS: Amlodipine 10 MG TAB PO SCH (09:48)
[2019-03-29] MEDS: Aspirin 81 mg Enteric Coated Tablet PO SCH (09:48)
--- NOTE | 2019-03-29 10:29 | PDOC.HOSPP ---
- Subjective Encounter Date: 03/29/19 Encounter Time: 08:10 Subjective: No new complaint.. - Objective Vital Signs & Weight: Vital Signs (12 hours) Temp Pulse Resp BP BP Pulse Ox 03/29/19 09:48 50 L 138/78 03/29/19 09:47 138/78 03/29/19 07:37 97.7 F 50 L 18 138/78 98 03/29/19 04:00 98.3 F 49 L 18 148/83 H 96 03/28/19 23:42 97.6 F 49 L 20 128/80 98 Weight Weight 200 lb 6.403 oz Most Recent Monitor Data Heart Rate from ECG 78 NIBP 158/95 NIBP BP-Mean 116 Respiration from ECG 28 SpO2 86 I&O: 03/28/19 03/29/19 03/30/19 06:59 06:59 06:59 Intake Total 600 480 Output Total 425 225 Balance 175 255 Result Diagrams: 03/23/19 03:40 03/23/19 03:40 Hospitalist ROS - Medication Medications: Active Medications Generic Name Dose Route Start Last Admin Trade Name Freq PRN Reason Stop Dose Admin Acetaminophen 1,000 mg 03/22/19 18:03 03/26/19 02:08 Tylenol PO 1,000 mg Q6H PRN Administration Mild Pain (1-3) Amlodipine Besylate 10 mg 03/24/19 09:00 03/29/19 09:48 Norvasc PO 10 mg DAILY WILL Administration Aspirin 81 mg 03/23/19 09:00 03/29/19 09:48 Ecotrin PO 81 mg DAILY WILL Administration Atorvastatin Calcium 40 mg 03/22/19 21:00 03/28/19 21:57 Lipitor PO 40 mg HS WILL Administration Enoxaparin Sodium 40 mg 03/23/19 09:00 03/29/19 09:47 Lovenox SC 40 mg 0900 WILL Administration Famotidine 20 mg 03/22/19 21:00 03/29/19 09:46 Pepcid PO 20 mg BID WILL Administration Hydralazine HCl 10 mg 03/22/19 18:03 03/23/19 18:11 Apresoline SLOW IVP 10 mg Q4H PRN Administration BP > 220/110 Levothyroxine Sodium 150 mcg 03/29/19 06:00 03/29/19 05:21 Synthroid PO 150 mcg 0600 WILL Administration Lisinopril 10 mg 03/24/19 21:00 03/29/19 09:47 Zestril PO 10 mg BID WILL Administration Lorazepam 1 mg 03/27/19 15:01 03/29/19 01:31 Ativan PO 1 mg Q6H PRN Administration Anxiety/Agitation Nicotine 21 mg 03/22/19 18:00 03/28/19 17:51 Nicoderm Patch TD 21 mg Q24HR WILL Administration Ondansetron HCl 4 mg 03/22/19 18:03 03/25/19 21:00 Zofran IVP 4 mg Q6H PRN Administration Nausea/Vomiting Senna/Docusate Sodium 1 tab 03/24/19 21:00 03/29/19 09:48 Senokot S PO Not Given BID WILL Sodium Chloride 10 ml 03/22/19 18:03 03/25/19 21:01 Flush - Normal Saline IVF 10 ml PRN PRN Administration Saline Flush Temazepam 15 mg 03/24/19 16:47 03/28/19 21:58 Restoril PO 15 mg HSPRN PRN Administration Insomnia - Exam Eye: anicteric sclera Neck: no JVD Heart: RRR Respiratory: CTAB Gastrointestinal: soft Extremities: no edema Neurological: hemiplegia Neurological - other findings: left.. Hosp A/P (1) Acute CVA (cerebrovascular accident) Code(s): I63.9 - CEREBRAL INFARCTION, UNSPECIFIED Status: Acute (2) Acute left hemiparesis Code(s): G81.94 - HEMIPLEGIA, UNSPECIFIED AFFECTING LEFT NONDOMINANT SIDE Status: Acute (3) Hypertensive urgency Code(s): I16.0 - HYPERTENSIVE URGENCY Status: Acute (4) Hyperlipidemia Code(s): E78.5 - HYPERLIPIDEMIA, UNSPECIFIED Status: Chronic (5) Tobacco abuse Code(s): Z72.0 - TOBACCO USE Status: Chronic - Plan Continue ASA, Statin... For Possible [facility] re[facility]
[2019-03-29] MEDS: Nicotine 21 MG PATCH TD SCH (17:52)
[2019-03-29] MEDS: Atorvastatin Calcium 40 MG TAB PO SCH (21:21)
[2019-03-29] MEDS: Temazepam 15 MG CAP PO PRN (21:21)
[2019-03-30] MEDS: Levothyroxine 150 MCG TAB PO SCH (06:15)
[2019-03-30 08:44] LABS: #Eosinphils 0.2 thou/uL (0.0-0.7); #Lymphocytes 1.4 thou/uL (1.20-3.40); #Monocytes 0.6 thou/uL (0.11-0.59); #Neutrophils 4.9 thou/uL (1.40-6.50); %Basophils 0.3 % (0.0-1.0); %Lymphocytes 19.8 % (21.0-51.0); %Monocytes 8.1 % (0.0-10.0); %Neutrophils 68.9 % (42.0-75.0); Hemoglobin 15.3 g/dL (14.0-18.0); Mean Corpuscular HGB CONC 33.7 g/dL (32.0-36.0); Mean Corpuscular Hemoglobin 32.8 pg (27.0-31.0); Mean Corpuscular Volume 97.2 fL (78.0-98.0); Mean Platelet Volume 6.4 fL (7.4-10.4); Platelet Count 327 thou/uL (130-400); RBC Distribution Width 10.7 % (11.5-14.5); Red Blood Cell (RBC) Count 4.68 mill/uL (4.70-6.10); White Blood Cell (WBC) Count 7.1 thou/uL (4.8-10.8)
[2019-03-30 09:04] LABS: Anion Gap 12 mmol/L (10-20); BUN (Urea Nitrogen) 17 mg/dL (8.4-25.7); Calc. Creatinine Clearance 113 mL/min (70-130); Calcium 8.9 mg/dL (7.8-10.44); Carbon Dioxide 22 mmol/L (22-29); Chloride 112 mmol/L (98-107); Estimated GFR-MDRD 87; Glucose 102 mg/dL (70-105); Potassium 4.1 mmol/L (3.5-5.1); Sodium 142 mmol/L (136-145)
[2019-03-30] MEDS: Aspirin 81 mg Enteric Coated Tablet PO SCH (09:25)
[2019-03-30] MEDS: Amlodipine 10 MG TAB PO SCH (09:25)
[2019-03-30] MEDS: Senokot S 8.6-50 MG TAB PO SCH ×2 (09:26→20:47)
[2019-03-30] MEDS: Enoxaparin Sodium 40 MG/0.4 ML SYRINGE SC SCH (09:26)
[2019-03-30] MEDS: Famotidine 20 MG TAB PO SCH ×2 (09:26→20:43)
[2019-03-30] MEDS: Lisinopril 10 MG TAB PO SCH ×2 (09:26→20:43)
--- NOTE | 2019-03-30 12:19 | PDOC.HOSPP ---
- Subjective Encounter Date: 03/30/19 Encounter Time: 12:17 Subjective: Mr. Pope was seen today in follow-up of acute pontine CVA. He is sitting in a chair. He does not have any complaints. He notes improved function in his left leg. - Objective Vital Signs & Weight: Vital Signs (12 hours) Temp Pulse Resp BP BP Pulse Ox 03/30/19 11:44 97.3 F L 55 L 18 144/83 H 99 03/30/19 09:26 124/73 03/30/19 09:25 48 L 124/73 03/30/19 08:00 97 03/30/19 07:33 97.7 F 48 L 16 124/73 97 03/30/19 04:00 97.7 F Weight Weight 200 lb 6.403 oz Most Recent Monitor Data Heart Rate from ECG 78 NIBP 158/95 NIBP BP-Mean 116 Respiration from ECG 28 SpO2 86 I&O: 03/29/19 03/30/19 03/31/19 06:59 06:59 06:59 Intake Total 480 600 Output Total 225 250 Balance 255 600 -250 Result Diagrams: 03/30/19 08:23 03/30/19 08:23 Hospitalist ROS - Medication Medications: Active Medications Generic Name Dose Route Start Last Admin Trade Name Freq PRN Reason Stop Dose Admin Acetaminophen 1,000 mg 03/22/19 18:03 03/26/19 02:08 Tylenol PO 1,000 mg Q6H PRN Administration Mild Pain (1-3) Amlodipine Besylate 10 mg 03/24/19 09:00 03/30/19 09:25 Norvasc PO 10 mg DAILY WILL Administration Aspirin 81 mg 03/23/19 09:00 03/30/19 09:25 Ecotrin PO 81 mg DAILY WILL Administration Atorvastatin Calcium 40 mg 03/22/19 21:00 03/29/19 21:21 Lipitor PO 40 mg HS WILL Administration Enoxaparin Sodium 40 mg 03/23/19 09:00 03/30/19 09:26 Lovenox SC 40 mg 0900 WILL Administration Famotidine 20 mg 03/22/19 21:00 03/30/19 09:26 Pepcid PO 20 mg BID WILL Administration Hydralazine HCl 10 mg 03/22/19 18:03 03/23/19 18:11 Apresoline SLOW IVP 10 mg Q4H PRN Administration BP > 220/110 Levothyroxine Sodium 150 mcg 03/29/19 06:00 03/30/19 06:15 Synthroid PO 150 mcg 0600 WILL Administration Lisinopril 10 mg 03/24/19 21:00 03/30/19 09:26 Zestril PO 10 mg BID WILL Administration Lorazepam 1 mg 03/27/19 15:01 03/29/19 23:11 Ativan PO 1 mg Q6H PRN Administration Anxiety/Agitation Nicotine 21 mg 03/22/19 18:00 03/29/19 17:52 Nicoderm Patch TD 21 mg Q24HR WILL Administration Ondansetron HCl 4 mg 03/22/19 18:03 03/25/19 21:00 Zofran IVP 4 mg Q6H PRN Administration Nausea/Vomiting Senna/Docusate Sodium 1 tab 03/24/19 21:00 03/30/19 09:26 Senokot S PO Not Given BID WILL Sodium Chloride 10 ml 03/22/19 18:03 03/25/19 21:01 Flush - Normal Saline IVF 10 ml PRN PRN Administration Saline Flush Temazepam 15 mg 03/24/19 16:47 03/29/19 21:21 Restoril PO 15 mg HSPRN PRN Administration Insomnia - Exam Eye: PERRL, anicteric sclera Heart: RRR (heart rate is bradycardic), no murmur, no gallops, no rubs, normal peripheral pulses Respiratory: CTAB, no wheezes, no rales, no ronchi, normal chest expansion, no tachypnea, normal percussion Gastrointestinal: soft, non-tender, non-distended, normal bowel sounds, no palpable masses, no hepatomegaly, no splenomegaly Extremities: no cyanosis, no edema Neurological: hemiplegia (left hemiplegia, but he is able to lift is leg against gravity on the left) Hosp A/P (1) Acute CVA (cerebrovascular accident) Code(s): I63.9 - CEREBRAL INFARCTION, UNSPECIFIED Status: Acute (2) Hypertension Code(s): I10 - ESSENTIAL (PRIMARY) HYPERTENSION Status: Chronic (3) Hyperlipidemia Code(s): E78.5 - HYPERLIPIDEMIA, UNSPECIFIED Status: Chronic - Plan * 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
[2019-03-30] MEDS: Nicotine 21 MG PATCH TD SCH (17:15)
[2019-03-30] MEDS: Atorvastatin Calcium 40 MG TAB PO SCH (20:43)
[2019-03-30] MEDS: Temazepam 15 MG CAP PO PRN (20:44)
[2019-03-31] MEDS: Lorazepam 1 MG TAB PO PRN (01:48)
[2019-03-31] MEDS: Levothyroxine 150 MCG TAB PO SCH (05:55)
[2019-03-31] MEDS: Aspirin 81 mg Enteric Coated Tablet PO SCH (09:00)
[2019-03-31] MEDS: Lisinopril 10 MG TAB PO SCH (09:00)
[2019-03-31] MEDS: Famotidine 20 MG TAB PO SCH (09:00)
[2019-03-31] MEDS: Senokot S 8.6-50 MG TAB PO SCH (09:01)
[2019-03-31] MEDS: Enoxaparin Sodium 40 MG/0.4 ML SYRINGE SC SCH (09:01)
[2019-03-31] MEDS: Amlodipine 10 MG TAB PO SCH (09:01)
--- NOTE | 2019-03-31 09:59 | PDOC.HOSPP ---
- Subjective Encounter Date: 03/31/19 Encounter Time: 09:57 Subjective: Mr. Pope was seen today in follow-up of acute CVA. He does not have any complaints. - Objective Vital Signs & Weight: Vital Signs (12 hours) Temp Pulse Resp BP BP Pulse Ox 03/31/19 09:01 43 L 145/82 H 03/31/19 09:00 145/82 H 03/31/19 07:46 98.1 F 43 L 16 145/82 H 97 03/31/19 04:00 97.6 F 46 L 16 121/67 98 03/31/19 00:00 97.8 F 50 L 16 112/61 96 Weight Weight 200 lb 6.403 oz Most Recent Monitor Data Heart Rate from ECG 78 NIBP 158/95 NIBP BP-Mean 116 Respiration from ECG 28 SpO2 86 I&O: 03/30/19 03/31/19 04/01/19 06:59 06:59 06:59 Intake Total 600 480 Output Total 700 Balance 600 -220 Result Diagrams: 03/30/19 08:23 03/30/19 08:23 Hospitalist ROS - Medication Medications: Active Medications Generic Name Dose Route Start Last Admin Trade Name Freq PRN Reason Stop Dose Admin Acetaminophen 1,000 mg 03/22/19 18:03 03/26/19 02:08 Tylenol PO 1,000 mg Q6H PRN Administration Mild Pain (1-3) Amlodipine Besylate 10 mg 03/24/19 09:00 03/31/19 09:01 Norvasc PO 10 mg DAILY WILL Administration Aspirin 81 mg 03/23/19 09:00 03/31/19 09:00 Ecotrin PO 81 mg DAILY WILL Administration Atorvastatin Calcium 40 mg 03/22/19 21:00 03/30/19 20:43 Lipitor PO 40 mg HS WILL Administration Enoxaparin Sodium 40 mg 03/23/19 09:00 03/31/19 09:01 Lovenox SC 40 mg 0900 WILL Administration Famotidine 20 mg 03/22/19 21:00 03/31/19 09:00 Pepcid PO 20 mg BID WILL Administration Hydralazine HCl 10 mg 03/22/19 18:03 03/23/19 18:11 Apresoline SLOW IVP 10 mg Q4H PRN Administration BP > 220/110 Levothyroxine Sodium 150 mcg 03/29/19 06:00 03/31/19 05:55 Synthroid PO 150 mcg 0600 WILL Administration Lisinopril 10 mg 03/24/19 21:00 03/31/19 09:00 Zestril PO 10 mg BID WILL Administration Lorazepam 1 mg 03/27/19 15:01 03/31/19 01:48 Ativan PO 1 mg Q6H PRN Administration Anxiety/Agitation Nicotine 21 mg 03/22/19 18:00 03/30/19 17:15 Nicoderm Patch TD 21 mg Q24HR WILL Administration Ondansetron HCl 4 mg 03/22/19 18:03 03/25/19 21:00 Zofran IVP 4 mg Q6H PRN Administration Nausea/Vomiting Senna/Docusate Sodium 1 tab 03/24/19 21:00 03/31/19 09:01 Senokot S PO Not Given BID WILL Sodium Chloride 10 ml 03/22/19 18:03 03/25/19 21:01 Flush - Normal Saline IVF 10 ml PRN PRN Administration Saline Flush Temazepam 15 mg 03/24/19 16:47 03/30/19 20:44 Restoril PO 15 mg HSPRN PRN Administration Insomnia - Exam Eye: PERRL Heart: RRR, no murmur, no gallops, no rubs Respiratory: CTAB, no wheezes, no rales, no ronchi, normal chest expansion, no tachypnea Gastrointestinal: soft, non-tender, non-distended, normal bowel sounds, no palpable masses, no hepatomegaly Extremities: no cyanosis, no edema Hosp A/P (1) Acute CVA (cerebrovascular accident) Code(s): I63.9 - CEREBRAL INFARCTION, UNSPECIFIED Status: Acute (2) Hypertension Code(s): I10 - ESSENTIAL (PRIMARY) HYPERTENSION Status: Chronic (3) Hyperlipidemia Code(s): E78.5 - HYPERLIPIDEMIA, UNSPECIFIED Status: Chronic - Plan * 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
--- NOTE | 2019-03-31 11:09 | DIS ---
DATE OF ADMISSION: 03/22/2019 DATE OF DISCHARGE: 03/31/2019 PRIMARY CARE PHYSICIAN: Dr. Carrol George. DISCHARGE DISPOSITION: [facility] in [place]. DISCHARGE DIAGNOSES: 1. Acute right pontine cerebrovascular accident. 2. Hypertensive urgency. 3. Dyslipidemia. 4. Hypothyroidism. DISCHARGE MEDICATIONS: Include; 1. Lisinopril 10 mg twice daily. 2. Levothyroxine 150 mcg p.o. daily. 3. Pepcid 20 mg twice a day. 4. Lipitor 40 mg at bedtime. 5. Aspirin 81 mg daily. 6. Norvasc 10 mg daily. 7. NicoDerm CQ 21 mg daily. PROCEDURES DONE AND IMAGING: During admission, the patient had a CT angiogram of the head and neck and this demonstrated scattered arteriosclerotic vascular disease. There was no evidence of high-grade stenosis or occlusion in any of the major arteries. The patient had an echocardiogram, in which the ejection fraction was estimated at 55% to 60%. There was some impaired relaxation, compatible with diastolic dysfunction. HOSPITAL COURSE: Mr. Pope is a pleasant 58-year-old gentleman, who presented to the emergency room after noticing weakness on his left side. He awoke with the inability to stand or walk. He called for help, was brought to the emergency room and was found to have an elevated blood pressure. MRI demonstrated an infarct in the zohra with involvement into the right cerebellar peduncle. He was evaluated by Neurology and their recommendation was to control the blood pressure as well as place him on aspirin and statin. An echocardiogram was also done, which did not demonstrate any significant pathology. He underwent PT and OT, and the patient was transferred to the [facility] in stable condition. Job ID: [id number]
[2019-03-31 11:42] VITALS: BP 121/68; TEMP 98.9
== END 2019-03-31 12:07 | DRG 65 ==
LOC: CCU 15:49 → 2SE 03-23 18:38
PROVIDERS: ADMIT Internal Medicine; ATTEND Internal Medicine
DX: I63.9 Cerebral infarction, unspecified (principal); G81.94 Hemiplegia, unspecified affecting left nondominant side; I16.0 Hypertensive urgency; E78.5 Hyperlipidemia, unspecified; E03.9 Hypothyroidism, unspecified; R47.1 Dysarthria and anarthria; R00.1 Bradycardia, unspecified; Z87.891 Personal history of nicotine dependence
CPT/HCPCS: 36415; 70498; 70551; 80048; 80061; 84439; 84443; 85007; 85025; 85027; 93306; J0360; J1650; J2060; J2405; J7050